=== PATIENT | female | born 1995 | race Caucasian/White ===

== ENCOUNTER 2016-11-30 18:11 | Emergency (ER) | payer BC ==
[2016-11-30 18:51] VITALS: RESP 16; O2SAT 100
--- NOTE | 2016-11-30 19:38 | ED PDOC ---
HPI: Abdomen Time Seen by Provider: 11/30/16 19:39 Chief Complaint (Nursing): Abdominal Pain Chief Complaint (Provider): ABDOMINAL PAIN/VAGINAL BLEEDING History Per: Patient (21 Y/O FEMALE HERE WITH VAGINAL SPOTTING X 3 WEEKS ASSOCIATED WITH MILD ABDOMINAL PAIN.) Past Medical History Reviewed: Historical Data, Nursing Documentation, Vital Signs Vital Signs: Last Vital Signs Temp 98.5 F 11/30/16 18:45 Pulse 102 H 11/30/16 18:45 Resp 16 11/30/16 18:45 BP 151/77 H 11/30/16 18:45 Pulse Ox 100 11/30/16 18:45 - Family History Family History: States: Hypertension - Home Medications Home Medications: Ambulatory Orders Medication Instructions Recorded Bacitracin Ointment [Bacitracin] 30 gm TOP BID #1 tube 04/20/14 Ibuprofen [Motrin Tab] 600 mg PO Q8H PRN #20 tab 04/20/14 - Allergies Allergies/Adverse Reactions: Allergies Allergy/AdvReac Type Severity Reaction Status Date / Time No Known Allergies Allergy Verified 04/20/14 17:07 Review of Systems ROS Statement: Except As Marked, All Systems Reviewed And Found Negative Gastrointestinal: Positive for: Abdominal Pain Genitourinary Female: Positive for: Vaginal Bleeding Physical Exam - Reviewed Nursing Documentation Reviewed: Yes Vital Signs Reviewed: Yes - Physical Exam Appears: Positive for: Well, Non-toxic, No Acute Distress Head Exam: Positive for: ATRAUMATIC, NORMAL INSPECTION, NORMOCEPHALIC Skin: Positive for: Normal Color, Warm, DRY Eye Exam: Positive for: EOMI, Normal appearance, PERRL ENT: Positive for: Normal ENT Inspection Neck: Positive for: Normal, Painless ROM Cardiovascular/Chest: Positive for: Regular Rate, Rhythm Respiratory: Positive for: CNT, Normal Breath Sounds Gastrointestinal/Abdominal: Positive for: Normal Exam, Bowel Sounds, Soft Pelvic Exam: Positive for: Other (NONTENDER ADNEXA. NO CMT. CERVIX CLOSED.). Negative for: No Cerv. Motion Tender, Active Bleeding Back: Positive for: Normal Inspection Extremity: Positive for: Normal ROM Neurologic/Psych: Positive for: Alert, Oriented - Laboratory Results Urine POC: Positive - ECG O2 Sat by Pulse Oximetry: 100 Disposition - Clinical Impression Clinical Impression: Abdominal pain during - Patient ED Disposition Is Patient to be Admitted: Transfer of Care - Disposition Disposition: Transfer of Care Disposition Time: 20:00 Condition: STABLE Patient Signed Over To: Anne Garay Handoff Comments: PENDING US/LABS
[2016-11-30 20:06] LABS: BASO % 0.4 % (0.0-2.0); EOS # 0.1 K/uL (0.0-0.7); EOS % 0.7 % (0.0-4.0); LYMPH # 2.6 K/uL (1.0-4.3); LYMPH % 24.3 % (20.0-40.0); MEAN CELL VOLUME 91.8 fl (81.0-99.0); MEAN CORPUSCULAR HEMOGLOBIN 30.2 pg (27.0-31.0); MEAN CORPUSCULAR HGB CONC 32.9 g/dL (33.0-37.0); MEAN PLATELET VOLUME 8.8 fl (7.2-11.7); MONO # 0.9 K/uL (0.0-0.8); MONO % 7.9 % (0.0-10.0); NEUT # 7.2 K/uL (1.8-7.0); NEUT % 66.7 % (50.0-75.0); RED CELL DISTRIBUTION WIDTH 13.4 % (11.5-14.5); WHITE BLOOD COUNT 10.8 K/uL (4.8-10.8)
--- NOTE | 2016-11-30 21:12 | ED PDOC ---
- Laboratory Results Result Diagrams: 11/30/16 19:50 11/30/16 19:40 Urine POC: Positive - ECG O2 Sat by Pulse Oximetry: 100 - Progress ED Course And Treament: Case endorsed to brief writer from Dewayne CHOUDHARY pending labs, u/s EXAM: US , Transvaginal CLINICAL HISTORY: 21 years old, female; Other: Abd pain , , Gestational age or lmp: ; ; Additional info: R/O ectopic TECHNIQUE: Real-time transvaginal obstetrical ultrasound of the maternal pelvis and a first trimester with image documentation. Transvaginal imaging was used for better evaluation of the fetus and adnexa. EXAM DATE/TIME: 11/30/2016 7:16 PM COMPARISON: No relevant prior studies available. FINDINGS: Uterus: Measures 8.5 x 4.3 x 6.5 cm. Single early intrauterine gestation identified. pole and yolk sac are seen. Estimated gestational age is 5 weeks, 6 days, based on the crown rump length. heart motion visualized, at 118-123 beats per minute. Cervix appears closed. Right ovary: Within normal limits in appearance. Measures 3.1 x 2.4 x 2.0 cm. Flow seen in the right ovary on color and Doppler imaging, with no evidence of torsion. Left ovary: Within normal limits in appearance. Measures 2.7 x 1.9 x 1.1 cm. Flow seen in the left ovary on color and Doppler imaging, with no evidence of torsion. Cul de sac: No free fluid. IMPRESSION: Early 5 week, 6 day intrauterine with heart motion. See above for remaining findings Patient educated on findings, discharged with instructions to follow up [employer] in 2-3 days. Return to ED for worsening/concerning symptoms. Disposition - Clinical Impression Clinical Impression: Abdominal pain during - POA Present On Arrival: None - Disposition Referrals: Francesca Diaz MD [Staff Provider] - Disposition: Routine/Home Disposition Time: 22:22 Condition: GOOD Instructions: Abdominal Pain in (ED)
[2016-11-30 21:50] LABS: ALB/GLOB RATIO 1.7 (1.0-2.1); ALKALINE PHOSPHATASE 43 U/L (38-126); ALT/SGPT 27 U/L (9-52); AST/SGOT 31 U/L (14-36); BILIRUBIN,TOTAL 0.2 mg/dl (0.2-1.3); BLOOD UREA NITROGEN 13 mg/dl (7-17); CALCIUM 9.2 mg/dL (8.4-10.2); CARBON DIOXIDE 25 mmol/L (22-30); CHLORIDE 101 mmol/L (98-107); GFR AFRICAN-AMERICAN > 60; GLUCOSE,RANDOM 84 mg/dL (65-105); POTASSIUM 3.9 MMOL/L (3.6-5.0); SODIUM 137 mmol/l (132-148); TOTAL PROTEIN 7.4 G/DL (6.3-8.2)
[2016-11-30 22:27] VITALS: BP 144/75; PULSE 81; TEMP 99
== END 2016-11-30 22:34 | disposition home or self-care (01) ==
LOC: H.ER 18:11
DX: O26.891 Other specified pregnancy related conditions, first trimester (principal)

== ENCOUNTER 2017-01-01 22:41 | Emergency (ER) | payer BC ==
[2017-01-01 22:57] VITALS: BP 124/66; PULSE 70; RESP 16; TEMP 98.2; O2SAT 100
--- NOTE | 2017-01-01 23:33 | ED PDOC ---
"HPI: Female Pain Chief Complaint (Provider): vaginal bleedingf in first trim History Per: Patient History/Exam Limitations: no limitations Onset/Duration Of Symptoms: Hrs (11 00 am) Current Symptoms Are (Timing): Still Present Severity: Mild Pain Scale Rating Of: 2 Quality Of Discomfort: Cramping Associated Symptoms: denies: Fever, Nausea, Vomiting, Diarrhea, Loss Of Appetite , Constipation, Urinary Symptoms Alleviating Factors: None Additional History Per: Patient Additional Complaint(s): 21 y/o primagravida at 10 weeks GA dated by last US presenting with vaginal spotting since 11 am. Associated with mild abdominal cramping. States last intercourse last night, noticed light spotting after which resolved and restarted this AM at 11. Used 1 paid so far, only states light spotting. No f/c/n/v/cp/sob/dizziness/focal weakness. Denies ETOH, tob, drugs LMP 10/25/16 Taking PNV OB: [facility] Meds: PNV Abnormal Vaginal Bleeding: Yes Last Menstral Period: 10/25/16 : 1 Para: 0 Miscarriage: 0 <Luis Carlos Lopez - Last Filed: 01/02/17 02:12> <Marisol Marquez - Last Filed: 01/02/17 15:35> Time Seen by Provider: 01/01/17 23:09 Chief Complaint (Nursing): Female Genitourinary Supervising Attending Note - Supervising Attending Note The Documented history was done by the: Physician Food Cooking Machine Operator, Attending Physician The documented physical exam was done by the: Physician Food Cooking Machine Operator, Attending Physician - Attestation: I have personally seen and examined this patient.: Yes I have fully participated in the care of the patient.: Yes I have reviewed all pertinent clinical information, including history, physical exam and plan: Yes <Marisol Marquez - Last Filed: 01/02/17 15:35> Past Medical History Vital Signs: Last Vital Signs Temp 98.2 F 01/01/17 22:54 Pulse 70 01/01/17 22:54 Resp 16 01/01/17 22:54 BP 124/66 01/01/17 22:54 Pulse Ox 100 01/01/17 22:54 - Medical History PMH: No Chronic Diseases - Family History Family History: States: Hypertension <Husnain,Luis Carlos F - Last Filed: 01/02/17 02:12> Vital Signs: Last Vital Signs Temp 98.2 F 01/01/17 22:54 Pulse 70 01/01/17 22:54 Resp 16 01/01/17 22:54 BP 124/66 01/01/17 22:54 Pulse Ox 100 01/02/17 02:18 <Marisol Marquez - Last Filed: 01/02/17 15:35> - Home Medications Home Medications: Ambulatory Orders Medication Instructions Recorded Bacitracin Ointment [Bacitracin] 30 gm TOP BID #1 tube 04/20/14 Ibuprofen [Motrin Tab] 600 mg PO Q8H PRN #20 tab 04/20/14 - Allergies Allergies/Adverse Reactions: Allergies Allergy/AdvReac Type Severity Reaction Status Date / Time No Known Allergies Allergy Verified 04/20/14 17:07 Review of Systems Constitutional: Negative for: Fever, Chills, Sweats Cardiovascular: Negative for: Chest Pain, Palpitations, Light Headedness Respiratory: Negative for: Cough, Wheezing Gastrointestinal: Positive for: Abdominal Pain (mild cramping suprapubic). Negative for: Nausea, Vomiting, Hematochezia, Hematemesis Genitourinary Female: Positive for: Vaginal Bleeding. Negative for: Dysuria, Frequency, Incontinence, Hematuria, Vaginal Discharge, Rash Skin: Negative for: Rash Neurological: Negative for: Weakness, Altered Mental Status, Headache <Luis Carlos Lopez F - Last Filed: 01/02/17 02:12> Physical Exam - Physical Exam Appears: Positive for: No Acute Distress Head Exam: Positive for: ATRAUMATIC Skin: Positive for: Normal Color, Warm, Dry Eye Exam: Positive for: EOMI, PERRL Cardiovascular/Chest: Positive for: Regular Rate, Rhythm Respiratory: Positive for: Normal Breath Sounds. Negative for: Wheezing, Respiratory Distress Gastrointestinal/Abdominal: Positive for: Soft. Negative for: Tenderness, Distended, Guarding Back: Negative for: L CVA Tenderness, R CVA Tenderness Extremity: Negative for: Pedal Edema Neurologic/Psych: Positive for: Alert, Oriented <Luis Carlos Lopez F - Last Filed: 01/02/17 02:12> - Laboratory Results Result Diagrams: 01/01/17 23:54 - ECG O2 Sat by Pulse Oximetry: 100 - Progress ED Course And Treament: First trim Vaginal bleeding threatened v. demise v. post coital spotting VSS, NAD TVUS O positive, antibody screen negative U dip, preg, quantative BHCG, CBC TVUS Addendum created by Laquita Latham MD on 01/02/2017 2:01 AM Eastern Time ([place] & [place]) THIS REPORT CONTAINS FINDINGS THAT MAY BE CRITICAL TO PATIENT CARE. The findings were verbally communicated via telephone conference with Dr Roberts at 2:00 AM EDT on 01/02/2017. The findings were acknowledged and understood. Initial Report created on 01/02/2017 1:37 AM Eastern Time ([place] & [place]) EXAM: US , Transvaginal CLINICAL HISTORY: 21 years old, female; Signs and symptoms; Lmp or gestational age (in weeks): ; Other: Vag bleeding; ; Additional info: Vaginal bleeding 1st trim TECHNIQUE: Real-time transvaginal obstetrical ultrasound of the maternal pelvis and a first trimester with image documentation. Transvaginal imaging was used for better evaluation of the fetus and adnexa. COMPARISON: US - OB TRANSVAGINAL 11/30/2016 8:03:34 PM FINDINGS: Gestation: A single intrauterine gestation is identified with a mean gestational sac size of 3.3 cm, corresponding to an approximate gestational age of 8 weeks and 2 days. The gestational sac is slightly misshapen. The crown-rump length measures 19.3 mm, corresponding to an approximate gestational age of 8 weeks and 3 days. No cardiac activity is identified. Uterus/cervix: Cervix is of normal length, but demonstrates free fluid within the cervical canal. The cervical lumen measures 1.5 cm. Ovaries: Unremarkable in echogenicity and size and no. No mass. Free fluid: No free fluid. IMPRESSION: [place]-rump length of greater than 7 mm, without cardiac activity - findings suggesting failure, for which correlation with the serum beta-hCG is recommended. CECILIA VIVAS | Preliminary Radiology Report MICROSTRATEGY BI DEVELOPER (QA) DISCREPANCY? If there is a discrepancy between the preliminary and final interpretation, please notify [facility] via [email or web address]. If you do not have access to our QA portal, call our QA team at [phone] CONFIDENTIALITY STATEMENT This report is intended only for the use of the referring physician, and only in accordance with law, If you received this in error, call [phone] Page 2 of 2 Thank you for allowing us to participate in the care of your patient. <Luis Carlos Lopez - Last Filed: 01/02/17 02:12> - Laboratory Results Result Diagrams: 01/01/17 23:54 <Marisol Marquez - Last Filed: 01/02/17 15:35> Disposition - Patient ED Disposition Is Patient to be Admitted: No - Disposition Disposition: Routine/Home Disposition Time: 02:16 <Luis Carlos Lopez - Last Filed: 01/02/17 02:12> - Disposition Disposition: Transfer of Care Disposition Time: 00:00 Patient Signed Over To: Ca Roberts Handoff Comments: Pending ER workup reassessment and final ER disposition <Marisol Marquez - Last Filed: 01/02/17 15:35> - Clinical Impression Clinical Impression: Spontaneous - Disposition Referrals: Kelsi Gonzalez MD [Staff Provider] - Condition: STABLE Additional Instructions: follow up in ED in 2 days for serial BHCG follow up with OB 01/19 as previously scheduled ER precautions discussed and verbalized printed information provided Instructions: Spontaneous Miscarriage (ED), Complications of Infection (GEN) Print Language: TRINIDADIAN"
[2017-01-02 00:14] LABS: HEMOGLOBIN 11.6 g/dL (12.0-16.0); MEAN CELL VOLUME 92.6 fl (81.0-99.0); MEAN CORPUSCULAR HEMOGLOBIN 30.2 pg (27.0-31.0); MEAN CORPUSCULAR HGB CONC 32.6 g/dL (33.0-37.0); RBC 3.84 Mil/uL (3.80-5.20); RED CELL DISTRIBUTION WIDTH 13.3 % (11.5-14.5); WHITE BLOOD COUNT 8.7 K/uL (4.8-10.8)
--- NOTE | 2017-01-02 14:39 | US ---
HISTORY: Vaginal bleeding 1st trim COMPARISON: Comparison made with prior study dated 11/30/2016 TECHNIQUE: Transvaginal sonographic evaluation of the pelvis performed. FINDINGS: Findings: Uterus is anteverted measuring approximately 8.6 x 8.2 x 6.6 cm. Questionable slight opening of the cervix with small amount of endocervical fluid. There is an intrauterine gestational sac on with measurements as follows: Gestational sac: MSD = 3.28 cm = 8 weeks 2 days: Yolk sac: Not detected pole: CRL = 1.93 cm = 8 weeks 3 days Heart motion: No cardiac activity detected. ultrasound age: 8 weeks 3 days +/-0 weeks 4 days ne Findings most likely represent failure. Clinical correlation with followup serial serum beta HCG and ultrasound recommended. Right ovary measures 2.7 x 2.6 x 1.3 cm. Left ovary measures approximately 2.1 x 1.8 x 1.6 cm. Both ovaries exhibit arterial flow Impression: Findings most likely represent failure with crown-rump length greater than 7 mm and no cardiac activity detected. . Follow-up of serial serum beta HCG and ultrasound recommended as above. Concordant preliminary report provided by overnight radiology service.
== END 2017-01-02 02:30 | disposition home or self-care (01) ==
LOC: H.ER 22:41
DX: O03.9 Complete or unspecified spontaneous abortion without complication (principal); Z3A.10 10 weeks gestation of pregnancy

== ENCOUNTER 2017-07-24 12:16 | Emergency (ER) | payer BC ==
[2017-07-24 12:21] VITALS: BP 141/88; PULSE 102; RESP 16; TEMP 98.4; O2SAT 100
--- NOTE | 2017-07-24 12:32 | ED PDOC ---
HPI: General Adult Time Seen by Provider: 07/24/17 12:25 Chief Complaint (Nursing): Abdominal Pain Chief Complaint (Provider): with abd pain History Per: Patient Additional Complaint(s): 22-year-old female presents with cramping abdominal pain that started last night. Patient states her last menstrual cycle was June 13 and she is currently but she is not sure how many weeks. Patient denies any vaginal bleeding. No fever or chills. Patient has had intermittent nausea and vomiting but is tolerating liquids and solids today. She is (1 previous miscarriage). Past Medical History Reviewed: Historical Data, Nursing Documentation, Vital Signs Vital Signs: Last Vital Signs Temp 98.4 F 07/24/17 12:18 Pulse 102 H 07/24/17 12:18 Resp 16 07/24/17 12:18 BP 141/88 07/24/17 12:18 Pulse Ox 100 07/24/17 14:05 - Medical History PMH: No Chronic Diseases - Surgical History Other surgeries: 2 surgeries as an - patient not sure of exact procedures - Family History Family History: States: Hypertension - Living Arrangements Living Arrangements: With Family - Social History Current smoker - smoking cessation education provided: No Alcohol: None Drugs: Denies - Home Medications Home Medications: Ambulatory Orders Medication Instructions Recorded Bacitracin Ointment [Bacitracin] 30 gm TOP BID #1 tube 04/20/14 Ibuprofen [Motrin Tab] 600 mg PO Q8H PRN #20 tab 04/20/14 Nitrofurantoin Macrocrystals 100 mg PO BID #14 cap 07/24/17 [Macrobid] - Allergies Allergies/Adverse Reactions: Allergies Allergy/AdvReac Type Severity Reaction Status Date / Time No Known Allergies Allergy Verified 04/20/14 17:07 Review of Systems ROS Statement: Except As Marked, All Systems Reviewed And Found Negative Genitourinary Female: Positive for: Pelvic Pain. Negative for: Dysuria, Vaginal Bleeding Physical Exam - Reviewed Nursing Documentation Reviewed: Yes Vital Signs Reviewed: Yes - Physical Exam Appears: Positive for: Well, Non-toxic, No Acute Distress Skin: Negative for: Rash Eye Exam: Positive for: Normal appearance Cardiovascular/Chest: Positive for: Regular Rate, Rhythm Respiratory: Positive for: Normal Breath Sounds Gastrointestinal/Abdominal: Positive for: Soft. Negative for: Tenderness, Guarding, Rebound Back: Negative for: L CVA Tenderness, R CVA Tenderness Neurologic/Psych: Positive for: Alert, Oriented - Laboratory Results Result Diagrams: 07/24/17 13:00 07/24/17 13:00 Urine POC: Positive Urine dip results: Positive for: Leukocyte Esterase (small), Blood (large) - ECG O2 Sat by Pulse Oximetry: 100 Pulse Ox Interpretation: Normal - Other Rad TV US X-Ray: Read By Radiologist X-Ray Interpretation: see below Medical Decision Making Medical Decision Makin-year-old female with abdominal pain Plan: UA and culture CBC CMP Beta TV US US: FINDINGS: IMPRESSION: A single viable intrauterine gestation is identified with average ultrasonic age of 5 weeks 5 days which is concordant with menstrual dates. A subchorionic hemorrhage is suggested inferiorly and clinical correlation is well as one-week center follow-up are advised. Question bilateral adnexal varicoceles. Patient is aware of diagnostic testing results. All questions answered. UTI noted, macrobid rx given. Patient was referred to women's clinic for follow up. Disposition - Clinical Impression Clinical Impression: Abdominal pain during , Urinary tract infection during - Patient ED Disposition Is Patient to be Admitted: No Counseled Patient/Family Regarding: Studies Performed, Diagnosis, Need For Followup, Rx Given - Disposition Referrals: [facility] [Outside] Disposition: Routine/Home Disposition Time: 14:05 Condition: STABLE Additional Instructions: Continue with vitamins. Take prescription antibiotics as directed. Follow-up in 2-3 days with women's clinic. Prescriptions: Nitrofurantoin Macrocrystals [Macrobid] 100 mg PO BID #14 cap Instructions: Abdominal Pain in (ED), Urinary Tract Infection in (ED) Forms: [employer] (Spanish) Results - Lab Results Lab Results: 07/24/17 07/24/17 07/24/17 13:00 13:00 13:00 WBC 7.2 RBC 3.93 Hgb 12.2 Hct 36.0 MCV 91.6 MCH 31.1 H MCHC 33.9 RDW 13.3 Plt Count 136 MPV 9.2 Neut % (Auto) 71.5 Lymph % (Auto) 19.7 L Bradford % (Auto) 7.7 Eos % (Auto) 0.7 Baso % (Auto) 0.4 Neut # 5.2 Lymph # 1.4 Bradford # 0.6 Eos # 0.0 Baso # 0.0 Sodium 139 Potassium 3.6 Chloride 101 Carbon Dioxide 24 Anion Gap 18 BUN 6 L Creatinine 0.5 L Est GFR ( Amer) > 60 Est GFR (Non-Af Amer) > 60 Random Glucose 78 Calcium 10.0 Total Bilirubin 0.6 AST 22 ALT 26 Alkaline Phosphatase 41 Total Protein 8.3 H Albumin 4.9 Globulin 3.5 Albumin/Globulin Ratio 1.4 Beta HCG, Quant 39756.00 Urine Color Yellow Urine Clarity Turbid Urine pH 5.0 Ur Specific Maceo 1.021 Urine Protein 100 Urine Glucose (UA) Neg Urine Ketones Negative Urine Blood Negative Urine Nitrate Negative Urine Bilirubin Negative Urine Urobilinogen 0.2-1.0 Ur Leukocyte Esterase Large Urine RBC (Auto) 3 Urine Microscopic WBC 37 H Ur Squamous Epith Cells 62 H Urine Bacteria Occ H Hyaline Casts 6-10 H Urine Yeast (Budding) Few H
[2017-07-24 13:14] LABS: BASO % 0.4 % (0.0-2.0); EOS % 0.7 % (0.0-4.0); HEMOGLOBIN 12.2 g/dL (12.0-16.0); LYMPH # 1.4 K/uL (1.0-4.3); LYMPH % 19.7 % (20.0-40.0); MEAN CELL VOLUME 91.6 fl (81.0-99.0); MEAN CORPUSCULAR HEMOGLOBIN 31.1 pg (27.0-31.0); MEAN CORPUSCULAR HGB CONC 33.9 g/dL (33.0-37.0); MEAN PLATELET VOLUME 9.2 fl (7.2-11.7); MONO # 0.6 K/uL (0.0-0.8); MONO % 7.7 % (0.0-10.0); NEUT # 5.2 K/uL (1.8-7.0); NEUT % 71.5 % (50.0-75.0); NRBC % 0.1 % (0.0-0.0); RBC 3.93 Mil/uL (3.80-5.20); RED CELL DISTRIBUTION WIDTH 13.3 % (11.5-14.5); WHITE BLOOD COUNT 7.2 K/uL (4.8-10.8)
[2017-07-24 13:31] LABS: ALBUMIN 4.9 g/dL (3.5-5.0); ALT/SGPT 26 U/L (9-52); AST/SGOT 22 U/L (14-36); BLOOD UREA NITROGEN 6 mg/dl (7-17); GFR AFRICAN-AMERICAN > 60; GFR NON-AFRICAN AMERICAN > 60
[2017-07-24 13:51] LABS: ALB/GLOB RATIO 1.4 (1.0-2.1)
[2017-07-24 13:59] LABS: SQUAMOUS EPITHIAL 62 /hpf (0-5); URINE BACTERIA OCC (<OCC); URINE BILIRUBIN NEGATIVE (NEGATIVE); URINE BLOOD NEGATIVE (NEGATIVE); URINE CLARITY TURBID (Clear); URINE COLOR YELLOW (YELLOW); URINE GLUCOSE (UA) NEG (Normal); URINE LEUKOCYTE ESTERASE LARGE Leu/uL (Negative); URINE NITRATE NEGATIVE (NEGATIVE); URINE PROTEIN 100 mg/dL (NEGATIVE); URINE UROBILINOGEN 0.2-1.0 mg/dL (0.2-1.0)
--- NOTE | 2017-07-24 14:27 | US ---
PROCEDURE: TRANSVAGINAL OBSTETRIC ULTRASOUND EXAMINATION HISTORY: with abd pain ; last was repaired as reported 06/13/2017 suggesting a gestational age of 5 weeks 6 days. COMPARISON: No prior comparison available. TECHNIQUE: Transvaginal pelvic ultrasound was performed with sagittal and transverse projections submitted for interpretation. FINDINGS: Additional sac is identified within the endometrial cavity as well as yolk sac with minute with amniotic membrane not clearly identified. pole is identified with the cardiac rate of 168 beats per minute. Mean gestational sac measurement is 1.32 cm correspond 5 weeks 4 days with pole crown-rump from length mean measurement of 0.21 cm corresponding to 5 weeks 5 days, both of which are concordant with menstrual dates. Evaluation of the decidual reaction reveals inhomogeneous echotexture inferior suspicious for acute or subacute hemorrhage subchorionic hemorrhage. The uterus is anteverted but normal in size measuring 8.6 x 5.7 x 6.3 cm without focal myometrial lesion. This internal cervical os is closed with the cervix measuring 3.7 cm. There questionable varicoceles in the bilateral adnexal compartments. IMPRESSION: A single viable intrauterine gestation is identified with average ultrasonic age of 5 weeks 5 days which is concordant with menstrual dates. A subchorionic hemorrhage is suggested inferiorly and clinical correlation is well as one-week center follow-up are advised. Question bilateral adnexal varicoceles.
== END 2017-07-24 14:42 | disposition home or self-care (01) ==
LOC: H.ER 12:16
DX: O23.41 Unspecified infection of urinary tract in pregnancy, first trimester (principal); Z3A.01 Less than 8 weeks gestation of pregnancy

== ENCOUNTER 2017-07-27 17:22 | Emergency (ER) | payer BC ==
[2017-07-27 17:49] VITALS: BP 129/77; PULSE 98; RESP 16; TEMP 98.7; O2SAT 100
--- NOTE | 2017-07-27 19:27 | ED PDOC ---
HPI:Nausea, Vomiting, Diarrhea Time Seen by Provider: 07/27/17 19:11 Chief Complaint (Nursing): GI Problem Chief Complaint (Provider): Vomiting History Per: Patient History/Exam Limitations: no limitations Onset/Duration Of Symptoms: Days (x2) Current Symptoms Are (Timing): Still Present Associated Symptoms: Vomiting, Other (vaginal bleeding). denies: Fever, Chills , Nausea, Diarrhea, Constipation, Urinary Symptoms Additional Complaint(s): Alice Enriquez is a 22 year old female, with no past medical history, who presents to the emergency department complaining of vomiting onset for x2 days. Patient reports she is unable to tolerate PO. She saw her MD x3 days ago who prescribed medication for a urinary infection. She denies any current urinary problems. She also reports vaginal bleeding at this moment which she did not have before. Patient is x6 weeks and was seen in the ED x1 week ago, had US done. She denies any fever, chills, diarrhea, cough, congestion, body aches or dysuria. No further medical complaints. PMD: None provided. Past Medical History Reviewed: Historical Data, Nursing Documentation, Vital Signs Vital Signs: Last Vital Signs Temp 98.7 F 07/27/17 17:45 Pulse 98 H 07/27/17 17:45 Resp 16 07/27/17 17:45 BP 129/77 07/27/17 17:45 Pulse Ox 100 07/27/17 17:45 - Medical History PMH: No Chronic Diseases - Surgical History Surgical History: No Surg Hx - Family History Family History: States: Hypertension - Home Medications Home Medications: Ambulatory Orders Medication Instructions Recorded Bacitracin Ointment [Bacitracin] 30 gm TOP BID #1 tube 04/20/14 Ibuprofen [Motrin Tab] 600 mg PO Q8H PRN #20 tab 04/20/14 Nitrofurantoin Macrocrystals 100 mg PO BID #14 cap 07/24/17 [Macrobid] Ondansetron ODT [Zofran ODT] 4 mg PO Q8 PRN #12 odt 07/28/17 - Allergies Allergies/Adverse Reactions: Allergies Allergy/AdvReac Type Severity Reaction Status Date / Time No Known Allergies Allergy Verified 04/20/14 17:07 Review of Systems ROS Statement: Except As Marked, All Systems Reviewed And Found Negative Constitutional: Negative for: Fever, Chills, Other (body aches) ENT: Negative for: Nose Congestion Respiratory: Negative for: Cough Gastrointestinal: Positive for: Vomiting Genitourinary Female: Positive for: Vaginal Bleeding. Negative for: Dysuria Physical Exam - Reviewed Nursing Documentation Reviewed: Yes Vital Signs Reviewed: Yes - Physical Exam Appears: Positive for: Well (comfortable), Non-toxic, No Acute Distress Head Exam: Positive for: ATRAUMATIC, NORMAL INSPECTION, NORMOCEPHALIC Skin: Positive for: Normal Color, Warm, Dry Eye Exam: Positive for: Normal appearance ENT: Positive for: Other (mucous membrane normal) Neck: Positive for: Painless ROM, Supple Cardiovascular/Chest: Positive for: Regular Rate, Rhythm. Negative for: Murmur Respiratory: Positive for: Normal Breath Sounds (clear auscultation b/l). Negative for: Respiratory Distress Gastrointestinal/Abdominal: Positive for: Soft, Tenderness (suprapubic tenderness) Back: Positive for: Normal Inspection. Negative for: L CVA Tenderness, R CVA Tenderness, Vertebral Tenderness Extremity: Positive for: Normal ROM. Negative for: Deformity, Swelling Neurologic/Psych: Positive for: Alert, Oriented - Laboratory Results Result Diagrams: 07/27/17 20:25 07/27/17 20:34 - ECG O2 Sat by Pulse Oximetry: 100 (RA) Pulse Ox Interpretation: Normal - Progress Re-evaluation Time: 01:13 Condition: Re-examined, Improved Medical Decision Making Medical Decision Making: Initial Impression: Vomiting in , related to UTI or complications; One episode of vaginal bleeding. Differential includes: induced hemesis, threatened miscarriage. Initial Plan: --reevaluation 07/24/2017 Transvaginal US FINDINGS: Additional sac is identified within the endometrial cavity as well as yolk sac with minute with amniotic membrane not clearly identified. pole is identified with the cardiac rate of 168 beats per minute. Mean gestational sac measurement is 1.32 cm correspond 5 weeks 4 days with pole crown-rump from length mean measurement of 0.21 cm corresponding to 5 weeks 5 days, both of which are concordant with menstrual dates. Evaluation of the decidual reaction reveals inhomogeneous echotexture inferior suspicious for acute or subacute hemorrhage subchorionic hemorrhage. The uterus is anteverted but normal in size measuring 8.6 x 5.7 x 6.3 cm without focal myometrial lesion. This internal cervical os is closed with the cervix measuring 3.7 cm. There questionable varicoceles in the bilateral adnexal compartments. IMPRESSION: A single viable intrauterine gestation is identified with average ultrasonic age of 5 weeks 5 days which is concordant with menstrual dates. A subchorionic hemorrhage is suggested inferiorly and clinical correlation is well as one-week center follow-up are advised. Question bilateral adnexal varicoceles. --00:56 EXAM: US , Transvaginal FINDINGS: Gestation: There is a single living intrauterine gestation. Gestational sac has mean diameter 18.3 mm. A yolk sac is present, internal diameter measures approximately 3 mm. [place] rump length measures 5.2 mm. There is a heart rate of 128 beats per minute. Uterus: Uterus measures approximately 7.6 x 5 x 6.5 cm. Cervix who is closed and approximately 4 cm in length. Ovaries: Right ovary measures approximately 3.6 x 2.1 x 2.7 cm. Left ovary measures approximately 2.6 x 1.9 x 2.5 cm. There are multiple small follicles. There is flow in both ovaries on Doppler imaging Free fluid: There is no free fluid. IMPRESSION: 6 week 2 day single living intrauterine gestation, estimated date of delivery 03/20/18 Scribe Attestation: Documented by Eduar Shankar, acting as a scribe for Mari Loaiza MD Provider Scribe Attestation: All medical record entries made by the Scribe were at my direction and personally dictated by me. I have reviewed the chart and agree that the record accurately reflects my personal performance of the history, physical exam, medical decision making, and the department course for this patient. I have also personally directed, reviewed, and agree with the discharge instructions and disposition. Disposition - Clinical Impression Clinical Impression: Vomiting affecting , Vaginal bleeding - Patient ED Disposition Is Patient to be Admitted: No Doctor Will See Patient In The: Office Counseled Patient/Family Regarding: Studies Performed, Diagnosis, Need For Followup - Disposition Referrals: [facility] [Outside] Disposition: Routine/Home Disposition Time: :14 Condition: GOOD Additional Instructions: Follow up with your PCP in 2-3 days. Prescriptions: Ondansetron ODT [Zofran ODT] 4 mg PO Q8 PRN #12 odt PRN Reason: Nausea/Vomiting Instructions: Threatened Miscarriage (ED), Acute Nausea and Vomiting (ED)
[2017-07-27] MEDS ORDERED: Sodium Chloride 0.9% 1,000 ML IV STA (19:51)
[2017-07-27 20:28] LABS: BASO # 0.1 K/uL (0.0-0.2); BASO % 0.5 % (0.0-2.0); EOS % 0.3 % (0.0-4.0); HEMOGLOBIN 13.2 g/dL (12.0-16.0); LYMPH # 2.2 K/uL (1.0-4.3); LYMPH % 15.7 % (20.0-40.0); MEAN CELL VOLUME 91.4 fl (81.0-99.0); MEAN CORPUSCULAR HEMOGLOBIN 29.4 pg (27.0-31.0); MEAN CORPUSCULAR HGB CONC 32.2 g/dL (33.0-37.0); MEAN PLATELET VOLUME 9.1 fl (7.2-11.7); MONO % 6.8 % (0.0-10.0); NEUT # 10.7 K/uL (1.8-7.0); NEUT % 76.7 % (50.0-75.0); NRBC % 0.1 % (0.0-0.0); RBC 4.5 Mil/uL (3.80-5.20); RED CELL DISTRIBUTION WIDTH 13.4 % (11.5-14.5)
[2017-07-27 21:00] LABS: ALB/GLOB RATIO 1.5 (1.0-2.1); ALBUMIN 4.8 g/dL (3.5-5.0); ALT/SGPT 21 U/L (9-52); AST/SGOT 40 U/L (14-36); BLOOD UREA NITROGEN 9 mg/dl (7-17); GFR AFRICAN-AMERICAN > 60; GFR NON-AFRICAN AMERICAN > 60; LIPASE 45 U/L (23-300)
--- NOTE | 2017-07-28 00:56 | US ---
EXAM: US , Transvaginal EXAM DATE/TIME: 07/27/2017 10:50 PM CLINICAL HISTORY: 22 years old, female; Signs and symptoms; Lmp or gestational age (in weeks): 06/13/17; Antepartum complications; Other: Spotting; ; Additional info: Vaginal bleeding TECHNIQUE: Real-time transvaginal obstetrical ultrasound of the maternal pelvis and a first trimester with image documentation. Transvaginal imaging was used for better evaluation of the fetus and adnexa. COMPARISON: There are no prior studies for comparison. FINDINGS: Gestation: There is a single living intrauterine gestation. Gestational sac has mean diameter 18.3 mm. A yolk sac is present, internal diameter measures approximately 3 mm. [place] rump length measures 5.2 mm. There is a heart rate of 128 beats per minute. Uterus: Uterus measures approximately 7.6 x 5 x 6.5 cm. Cervix who is closed and approximately 4 cm in length. Ovaries: Right ovary measures approximately 3.6 x 2.1 x 2.7 cm. Left ovary measures approximately 2.6 x 1.9 x 2.5 cm. There are multiple small follicles. There is flow in both ovaries on Doppler imaging Free fluid: There is no free fluid. IMPRESSION: 6 week 2 day single living intrauterine gestation, estimated date of delivery 03/20/18
== END 2017-07-28 01:48 | disposition home or self-care (01) ==
LOC: H.ER 17:22
DX: O20.9 Hemorrhage in early pregnancy, unspecified (principal); O21.9 Vomiting of pregnancy, unspecified; Z3A.12 12 weeks gestation of pregnancy
CPT/HCPCS: 76817; 80053; 81025; 83690; 84702; 85025; 96374; 99283; J2405; J7040

== ENCOUNTER 2018-02-27 15:42 | Emergency (ER) | payer BC ==
[2018-02-27 15:58] VITALS: BMI 25.4
[2018-02-27 23:30] VITALS: BP 115/68; PULSE 97; RESP 18; TEMP 98.1; O2SAT 98
--- NOTE | 2018-02-28 09:39 | OBHP ---
Datetime: 02/27/2018 18:22 IP Adm Impression: Term, intrauterine IP Admit Plan: Discharge home Admit Comment, IP Provider: Pt is a 23 yo , 37wk, present to [facility] due to contraction that sta rted at 21:00 02/26/18 . Pt state she also have white discharge, pt denies gush of water, bleeding. P t have no other complain. Pt denies headache, dizziness, chest pain, sob, dysuria or polyuria. Allergy: none Med: Ventolin, PNV PMH: Asthma PFH: Lupos mom PSH:none OBHX: one miscarraige Social: used to smoke and drink, denies smoking/drinkin/ or drug use during Assessment Pt is a 23 yo , 37wk, present to [facility] due to contraction that started at 21:00 02/26/18 Pt is lying comfortable in bed with no acute distress Pt vitals wnl strip reassruing PE: 2cm, 25%, high, intact membrane 19:00 02/27/2018 Plan discharge pt home follow up next visit on 03/01/[address] Gallagher Pt educated that she may bleed due to pelvic exam Pt was advised to go to ER if bleeding persist, contraction become more frequent, note gush of nola er, or any other concern Case discussed with DR Margaret Bajwa PGY1 Addendum: I saw and examined patient. No evidence of labor at this time. heart tracing reactive. Discu ssed plan with patient and all patient questions answered. Patient discharged home with labor precaut ions. Margaret Pelvic Type - PN: Adequate Extremities - PN: Normal Abdomen - PN: Normal Back - PN: Not Done Breast - PN: Not Done Lungs - PN: Normal Heart - PN: Normal Thyroid - PN: Not Done Neurologic - PN: Not Done HEENT - PN: Normal General - PN: Normal Presentation-Admit: Vertex FHR - Baseline A Provider: 135 Comments, ACOG Physical Exam: PT is lying comfortable in bed Cardio: S1 s2 heard no extra heard lung clear in all quadrant abd: nontender bs+, fundos above umbilicus extremites: nontender pelvic: 2cm,25%, high at 19:00 02/27/18 Gestation - Est Wks by US: 37.0 Pool Provider: Negative EGA AdmitDate IP: 37.0 Vital Signs Provider: Reviewed; Within Normal Limits IP Chief Complaint: Uterine contractions NICHD Variability Prov Fetus A: Moderate 6-25bpm NICHD Decel Fetus A IP Provider: None Dilatation, Provider: 2 Effacement, Provider: 25 Genitourinary Exam: Not Done DTRs - PN: Not Done
== END 2018-02-27 19:10 | disposition home or self-care (01) ==
LOC: H.EROB2 15:42
DX: O26.93 Pregnancy related conditions, unspecified, third trimester (principal); R10.2 Pelvic and perineal pain; Z3A.37 37 weeks gestation of pregnancy; O47.1 False labor at or after 37 completed weeks of gestation

== ENCOUNTER 2018-03-03 16:49 | Emergency (ER) | payer BC ==
[2018-03-03] MEDS ORDERED: Phenaphthazine-PH Test Paper VI ONE (17:40)
[2018-03-03 21:12] VITALS: BMI 24.7
--- NOTE | 2018-03-03 21:39 | OBHP ---
Datetime: 03/03/2018 17:47 IP Adm Impression: Term, intrauterine IP Admit Plan: Observation/Evaluation; Discharge home Admit Comment, IP Provider: 23 yo at 37+4 wks w/ EDC 03/20/2018, bu 6 wk u/s, who c/o a lot of pressure in left lower back, sx x 2 weeks. Pt also c/o on and off burning sensation in left abdom enx a couple of days. Pt also reports decreased movement since yesterday. Pt reports that she is not sure if she is aving ctxns. Pt reports leaking a creamy d/c, sometimes white and sometimes b rown. Pt denies dysuria. Pt receives her PN care w/ [facility] w/ Dr. Gonzalez. 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 NST reactive Pt discharged home w/ labor precautions Pt has a f/u appoint next ., 03/09/2018. Extremities - PN: Normal Abdomen - PN: Normal Back - PN: Normal Lungs - PN: Normal Heart - PN: Normal Neurologic - PN: Normal HEENT - PN: Normal General - PN: Normal FHR - Baseline A Provider: 130's Membranes, Provider: Intact Contraction Comments Provider: irregular Comments, ACOG Physical Exam: Spec: white d/c, neg pool, neg fern VE: 2/ 100/-1 Pool Provider: Negative Nitrazine Provider: Negative EGA AdmitDate IP: 37.4 Vital Signs Provider: Reviewed IP Chief Complaint: Maternal discomfort NICHD Variability Prov Fetus A: Moderate 6-25bpm NICHD Accel Fetus A IP Provider: 15X15 FHR Category Provider Fetus A: Category I NICHD Decel Fetus A IP Provider: None Dilatation, Provider: 2 Effacement, Provider: 100 Station, Provider: -1 Genitourinary Exam: Normal
--- NOTE | 2018-03-03 21:42 | OBDCSUM ---
Datetime: 03/03/2018 21:38 Discharged to, Provider: Home Discharged to, Provider: Home Follow up at, Provider: Dr. Gonzalez Follow up at, Provider: Dr. Gonzalez Disch Instr Diet: Regular Discharge Instructions, Provider: Routine instructions given Discharge Diagnosis, Provider: False Labor - Undelivered Discharge Time: 03/03/2018 21:38 Discharge Time: 03/03/2018 21:38 Follow up in weeks, Provider: 03/09/2018 Follow up in weeks, Provider: 03/09/2018 Disch Referrals: None
[2018-03-04 02:10] VITALS: BP 112/77; PULSE 81; O2SAT 100
== END 2018-03-03 21:50 | disposition home or self-care (01) ==
LOC: H.EROB2 16:49
DX: O26.93 Pregnancy related conditions, unspecified, third trimester (principal); M54.5 Low back pain; R10.2 Pelvic and perineal pain; O36.8130 Decreased fetal movements, third trimester, not applicable or unspecified; Z3A.37 37 weeks gestation of pregnancy

== ENCOUNTER 2018-03-07 15:40 | Emergency (ER) | payer BC ==
[2018-03-07 22:15] VITALS: BP 113/71; PULSE 85; RESP 17; TEMP 98.9; O2SAT 99
--- NOTE | 2018-03-08 07:35 | OBHP ---
Datetime: 03/07/2018 17:40 IP Adm Impression: Term, intrauterine IP Admit Plan: Observation/Evaluation Admit Comment, IP Provider: 23 yo at 38.1 weeks consistent with 6 weeks US present with lowe r abdominal and back pressure. Monet came on 03/03 for similar type of pain and pressure and was jm d that she is in early labor. Since 2 AM today patient started feeling increasing pressure, lower abd ominal pain and back pain that is progressively increasing. Patient also reports not sleeping well fo r last few days due to pressure. She reports whitish discharge but denies LOF, vaginal bleeding. Repo rts feeling normal movements. Denies any recent sexual activity. Denies any fever, chills, vomi ting, diarrhea, urnary Sx. PNC: Dr. 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 - SVE: loose 2/ 90/0 at 1740 - NST reactive - TOCO: Occasional irregular contractions - Pt discharged home w/ instruction to return @ 21:00 tonight - Labor precautions provided - Will consider morphine for sleep/pain when patient returns OB attending addendum: Patient seen and examined by me with Dr. Issac Buchanan above assessment and plan. Of note patient seen on March 03 with essentially the same pelvic exam. Plan: Labor precautions Kick counts Patient advised that she return to the hospital evening and received pain management which would a llow her to sleep. Pelvic Type - PN: Adequate Extremities - PN: Normal Abdomen - PN: Normal Lungs - PN: Normal Heart - PN: Normal Neurologic - PN: Normal HEENT - PN: Normal General - PN: Normal FHR - Baseline A Provider: 130 Membranes, Provider: Intact Contraction Comments Provider: Irregular Gestation - Est Wks by US: 38.1 EGA AdmitDate IP: 38.1 Vital Signs Provider: Reviewed; Within Normal Limits IP Chief Complaint: Uterine contractions; Maternal discomfort NICHD Variability Prov Fetus A: Moderate 6-25bpm NICHD Accel Fetus A IP Provider: 15X15 FHR Category Provider Fetus A: Category I NICHD Decel Fetus A IP Provider: None Dilatation, Provider: 2 Effacement, Provider: 90 Station, Provider: 0/-1 Genitourinary Exam: Normal DTRs - PN: Not Done
== END 2018-03-07 17:50 | disposition home or self-care (01) ==
LOC: H.EROB2 15:40
DX: O26.93 Pregnancy related conditions, unspecified, third trimester (principal); R10.2 Pelvic and perineal pain; Z3A.38 38 weeks gestation of pregnancy